=== PATIENT | male | born 1975 | race Caucasian/White ===

== ENCOUNTER 2019-08-02 15:53 | Emergency (ER) | payer OTHER ==
[~2019-08-02] VITALS: Ht 175.3 cm; Wt 123.4 kg
--- NOTE | 2019-08-02 16:00 | NUR ---
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
[2019-08-02] MEDS ORDERED: EPINEPHRINE (1:1000) 1 MG/ML AMPUL ONE (16:01)
[2019-08-02] MEDS ORDERED: IV NS 0.9% 1,000 ML IV ONE (16:01)
--- NOTE | 2019-08-02 16:02 | NUR ---
SEEN AND EXAMINED BY
[2019-08-02] MEDS ORDERED: DEXAMETHASONE SOD PHOSPHATE 10 MG/ML VIAL ONE (16:05)
[2019-08-02] MEDS ORDERED: diphenhydrAMINE HCL 50 MG/ML VIAL ONE (16:05)
[2019-08-02] MEDS ORDERED: FAMOTIDINE/PF INJ 20 MG/2 ML VIAL IV ONE ×2 (16:05→16:30)
--- NOTE | 2019-08-02 16:05 | NUR ---
PT IV LINE ESTABLISHED, BLOOD DRAWNED AND SENT TO LAB.
--- NOTE | 2019-08-02 16:07 | NUR ---
[employer] [facility] AT BEDSIDE FOR XRAY.
[2019-08-02 16:27] LABS: BASOPHILS # (AUTO) 0.1 /CMM (0.0-0.2); BASOPHILS % (AUTO) 0.9 % (0.0-2.0); EOSINOPHILS % (AUTO) 1.3 % (0.0-6.0); HEMATOCRIT 47 % (39-51); HEMOGLOBIN 16.2 g/dL (13.5-17.5); LYMPHOCYTES # (AUTO) 2.2 /CMM (0.8-4.8); LYMPHOCYTES % (AUTO) 24.1 % (20.0-44.0); MEAN CORPUSCULAR HGB CONC 35 g/dl (31.0-36.0); MEAN CORPUSCULAR VOLUME 94 fL (80-96); MONOCYTES % (AUTO) 10.5 % (2.0-12.0); NEUTROPHILS # (AUTO) 5.7 /CMM (1.8-8.9); NEUTROPHILS % (AUTO) 63.2 % (43.0-81.0); PLATELET COUNT (AUTO) 152 /CMM (150-450); RED BLOOD CELL COUNT(AUTO) 5.01 MIL/uL (4.5-6.0)
[2019-08-02] MEDS ORDERED: DEXAMETHASONE SOD PHOSPHATE 10 MG/ML VIAL IV ONE (16:30)
[2019-08-02] MEDS ORDERED: EPINEPHRINE (1:1000) MDV 30 MG/30ML VIAL SUBCUT ONE (16:30)
[2019-08-02] MEDS ORDERED: diphenhydrAMINE HCL 50 MG/ML VIAL IV ONE (16:30)
[2019-08-02] MEDS ORDERED: RACEPINEPHRINE HCL 2.25% NEB 0.5 ML VIAL.NEB IH ONE ×7 (16:30→19:35)
[2019-08-02 16:33] LABS: CALCIUM, SERUM 9.6 mg/dL (8.5-10.1); CARBON DIOXIDE 25 mmol/L (21-32); CHLORIDE 103 mmol/L (98-107); CREATININE 0.9 mg/dL (0.6-1.3); GLUCOSE 115 mg/dL (74-106); POTASSIUM 3.7 mmol/L (3.5-5.1); SODIUM SERUM 141 mmol/L (136-145); UREA NITROGEN, BLOOD 16 mg/dL (7-18)
[2019-08-02 16:38] LABS: ALANINE AMINOTRANSFERASE 53 U/L (12-78); ALBUMIN 4.2 g/dL (3.4-5.0); ALKALINE PHOSPHATASE 74 U/L (46-116); ASPARTATE AMINOTRANSFERASE 42 U/L (15-37); BILIRUBIN,DIRECT 0.1 mg/dL (0.0-0.2); BILIRUBIN,TOTAL 0.4 mg/dL (0.2-1.0); TOTAL PROTEIN, SERUM 8.4 g/dL (6.4-8.2)
--- NOTE | 2019-08-02 16:38 | NUR ---
DR ESTELLE GONCALVES PAGED THRU PING,OFFICE
--- NOTE | 2019-08-02 16:55 | NUR ---
ANESTHESIOLOGIST AT BEDSIDE FOR EVAL.
--- NOTE | 2019-08-02 17:00 | NUR ---
PT NEEDED TO BE TRANSFER FOR HIGHER LEVEL OF CARE DUE TO DIFFICULT AIRWAY PER ER MD AND ANESTHESIOLOGIST. CHARGE NURSE AND TUFTER AWARE.
--- NOTE | 2019-08-02 17:27 | NUR ---
[facility] CALLED,PRESENTED CASE TO ADITHYA CANADA,WILL HAVE VAISHALI RUIZ GIVE US A CALL BACK
[2019-08-02] MEDS ORDERED: CEFTRIAXONE 1 G in IV D5W 50 ML IV ONE ×2 (17:30→18:30)
--- NOTE | 2019-08-02 17:30 | NUR ---
CALLED [facility]. NO ENT SFDC ARCHITECT.
--- NOTE | 2019-08-02 17:36 | NUR ---
CALLED CAROLA LYNCH. DIRECTED TO GO THROUGH [facility]
--- NOTE | 2019-08-02 17:36 | NUR ---
[facility] STATED THAT THEY ARE AT FULL CAPACITY, PER PATRICA
[2019-08-02] MEDS ORDERED: CEFTRIAXONE 1GM BAG (ER ONLY) 0 ML IV ONE (17:37)
--- NOTE | 2019-08-02 17:47 | NUR ---
CALLED [facility] DR MANZANO AT [phone] AND LEFT A MESSAGE REQUESTING A CALL BACK. AWAITING HIS CALL.
--- NOTE | 2019-08-02 17:59 | NUR ---
CALLED [facility].
--- NOTE | 2019-08-02 18:03 | NUR ---
CALLED [facility].
[2019-08-02] MEDS ORDERED: CEFTRIAXONE 1GM BAG (ER ONLY) 50 ML IV ONE (18:19)
[2019-08-02] MEDS ORDERED: CLINDAMYCIN 900 MG in IV D5W 100 ML IV ONE (18:30)
--- NOTE | 2019-08-02 18:48 | NUR ---
SPOKE TO BELLO FROM [facility]. CONFIRMED RECEIVING FAX. INFORMED ME THAT SHE WILL FOLLOW UP, BUT BEDS ARE AT CAPACITY
--- NOTE | 2019-08-02 19:07 | NUR ---
RT AT BEDSIDE FOR BREATHING TREAMENT.
--- NOTE | 2019-08-02 19:11 | NUR ---
REPORT GIVEN TO DREAD RAG[place] FOR [facility]. AWAITING TRANSFER INFO TO [facility].
--- NOTE | 2019-08-02 19:13 | NUR ---
SITTING UPRIGHT IN BED RECEIVING BREATHING TX. REPORTED FEELING BETTER . NO ACUTE DISTRESS NOTED. FAMIL AT THE BED SIDE. WILL CONT TO MONITOR,
[2019-08-02 19:14] VITALS: BP 157/101
--- NOTE | 2019-08-02 19:26 | NUR ---
[facility] ED. DR CORY BRADLEY. GIVE REPORT TO [phone] ETA [phone]
--- NOTE | 2019-08-02 19:31 | NUR ---
ALS TEAM FROM [facility] ([place], [place]) AMBULANCE. DR CLINE AND FAMILY AT THE BED SIDE TO TRANSFER THE PT TO [facility].
--- NOTE | 2019-08-02 19:39 | NUR ---
REPORT GIVEN TO [facility] IN [facility].
== END 2019-08-02 19:49 | disposition short-term general hospital (02) ==
LOC: ER 15:53
DX: J05.10 Acute epiglottitis without obstruction (principal); E11.9 Type 2 diabetes mellitus without complications; J45.909 Unspecified asthma, uncomplicated
CPT/HCPCS: 36415; 70360; 71045; 80048; 80076; 84484; 85025; 94640 ×2; 96361; 96365; 96366; 96368; 96372; 96375; 99291; 99292; J0171 ×2; J0696 ×2; J1100; J1200; J3490 ×2; J7030; J7060 ×2

== ENCOUNTER 2023-08-04 20:54 | Inpatient (IN) | payer OTHER ==
[~2023-08-04] VITALS: Ht 177.8 cm; Wt 136.1 kg
[2023-08-04 21:37] LABS: BASOPHILS % (AUTO) 0.7 % (0.0-2.0); EOSINOPHILS # (AUTO) 0.1 K/uL (0.0-0.7); EOSINOPHILS % (AUTO) 1.7 % (0.0-6.0); HEMATOCRIT 30 % (39-51); HEMOGLOBIN 10.2 g/dL (13.5-17.5); LYMPHOCYTES # (AUTO) 0.7 K/uL (0.8-4.8); LYMPHOCYTES % (AUTO) 10.8 % (20.0-44.0); MEAN CORPUSCULAR HEMOGLOBIN 33 PG (26.0-33.0); MEAN CORPUSCULAR HGB CONC 34 g/dl (31.0-36.0); MEAN CORPUSCULAR VOLUME 97 fL (80-96); MONOCYTES # (AUTO) 0.7 K/uL (0.1-1.30); MONOCYTES % (AUTO) 10.7 % (2.0-12.0); NEUTROPHILS # (AUTO) 5.2 K/uL (1.8-8.9); NEUTROPHILS % (AUTO) 76.1 % (43.0-81.0); PLATELET COUNT (AUTO) 55 K/uL (150-450); RED BLOOD CELL COUNT(AUTO) 3.14 MIL/uL (4.5-6.0); RED CELL DISTRIBUTION WIDTH 15.2 % (11.5-15.0); WHITE BLOOD COUNT (AUTO) 6.8 K/uL (4.3-11.0)
[2023-08-04 21:49] LABS: APPEARANCE,URINE CLEAR (CLEAR); BILIRUBIN,URINE NEGATIVE (NEGATIVE); BLOOD, URINE TRACE-INTA Ery/uL (NEGATIVE); COLOR,URINE DARK YELLOW (YELLOW); KETONES,URINE TRACE mg/dL (NEGATIVE); LEUKOCYTE ESTERASE ,URINE NEGATIVE (NEGATIVE); NITRITE, URINE NEGATIVE (NEGATIVE); PH,URINE 5.5 (5.0-8.0); PROTEIN,URINE 1+ mg/dl (NEGATIVE); UGLUCOSE NEGATIVE (NEGATIVE); UROBILINOGEN,URINE 0.2 EU/dL (0.2)
[2023-08-04 21:55] LABS: ALANINE AMINOTRANSFERASE 34 U/L (12-78); ALBUMIN 2.5 g/dL (3.4-5.0); ALKALINE PHOSPHATASE 254 U/L (46-116); ASPARTATE AMINOTRANSFERASE 176 U/L (15-37); BILIRUBIN,DIRECT 0.7 mg/dL (0.0-0.2); CARBON DIOXIDE 26 mmol/L (21-32); CHLORIDE 96 mmol/L (98-107); CREATININE 2.3 mg/dL (0.6-1.3); GLUCOSE 87 mg/dL (74-106); POTASSIUM 3.8 mmol/L (3.5-5.1); SODIUM SERUM 132 mmol/L (136-145); TOTAL PROTEIN, SERUM 7.8 g/dL (6.4-8.2); UREA NITROGEN, BLOOD 28 mg/dL (7-18)
[2023-08-04 22:07] LABS: ADD URINE CULTURE NO; BACTERIA,URINE Few /HPF (None Seen); HYALINE CASTS, URINE Few /LPF (None Seen); RBC,URINE 0-2 /HPF (0-2); WBC,URINE 0-2 /HPF (0-3)
[2023-08-04 22:08] LABS: MUCUS,URINE Few /LPF (None Seen)
[2023-08-04 22:14] LABS: EOSINOPHILS % (MANUAL) 3 % (0-4); LYMPHOCYTES % (MANUAL) 6 % (16-48); MONOCYTES % (MANUAL) 8 % (0-11.0); NEUTROPHILS % (MANUAL) 83 (42-76); PLATELET ESTIMATE DECREASED
[2023-08-05 00:39] VITALS: BP 138/80; TEMP 99.1; O2SAT 94
[2023-08-05] MEDS ORDERED: Z GUARD REMEDY 4 OZ OINT TP PRN (02:30)
[2023-08-05] MEDS ORDERED: IV NS 0.9% 1,000 ML IV PRN (02:30)
[2023-08-05] MEDS ORDERED: MAGNESIUM HYDROXIDE 30 ML UDC PO PRN (02:30)
[2023-08-05] MEDS ORDERED: ACETAMINOPHEN 325 MG TABLET PO PRN (02:30)
[2023-08-05] MEDS ORDERED: ONDANSETRON HCL/PF 4 MG/2 ML VIAL IVP PRN (02:30)
[2023-08-05] MEDS ORDERED: DEXTROSE 50%-WATER 50 ML DISP.SYRIN IV PRN (05:30)
[2023-08-05] MEDS: IV D5/ 0.9% NACL 1,000 ML IV PRN (05:43)
[2023-08-05] MEDS: PANTOPRAZOLE 40 MG TABLET.DR PO SCH (06:37)
[2023-08-05] MEDS: BLOOD SUGAR DIAGNOSTIC 1 EACH STRIP IN SCH ×4 (06:41→21:55)
[2023-08-05] MEDS ORDERED: BLOO-668 IN (07:58)
[2023-08-05 08:00] VITALS: BP 106/78; TEMP 98.6; O2SAT 95
[2023-08-05] MEDS: DOCUSATE SODIUM 100 MG CAPSULE PO SCH ×3 (08:41→16:06)
[2023-08-05] MEDS ORDERED: HEPARIN SODIUM, PORCINE 5000 UNITS/1 ML VIAL SQ SCH (09:00)
[2023-08-05] MEDS: INSULIN REGULAR, HUMAN 100 UNIT/ML 3 ML VIAL SQ PRN ×2 (11:28→17:08)
[2023-08-05] MEDS ORDERED: LORAZEPAM INJ 2 MG/ML VIAL IV PRN (12:00)
[2023-08-05] MEDS: CHLORDIAZEPOXIDE HCL 25 MG CAPSULE PO SCH ×2 (12:13→16:05)
[2023-08-05 16:00] VITALS: BP 117/81; TEMP 97.4; O2SAT 99
[2023-08-05 16:34] LABS: FERRITIN 158 ng/mL (8-388)
[2023-08-05 17:27] LABS: CREATININE, URINE 184.5 MG/DL (30.0-125.0); URINE SODIUM, RANDOM < 5 mmol/l (40-220); URINE TOTAL PROTEIN 22.5 mg/dL (0-11.9)
[2023-08-05 18:03] LABS: OCCULT BLOOD STOOL NEGATIVE (NEGATIVE)
[2023-08-05 18:04] LABS: RHEUMATOID FACTOR SCREEN NEGATIVE (NEGATIVE)
[2023-08-05 20:00] VITALS: BP 115/74; TEMP 99.1; O2SAT 94
[2023-08-05 20:06] VITALS: BP 115/74; TEMP 94; O2SAT 94
[2023-08-06] MEDS ORDERED: LOPERAMIDE HCL UDC 2 MG/15 ML LIQUID PO PRN (06:00)
[2023-08-06] MEDS: BLOOD SUGAR DIAGNOSTIC 1 EACH STRIP IN SCH ×3 (06:45→17:15)
[2023-08-06 06:46] LABS: BASOPHILS # (AUTO) 0.1 K/uL (0.0-0.2); BASOPHILS % (AUTO) 0.8 % (0.0-2.0); EOSINOPHILS # (AUTO) 0.3 K/uL (0.0-0.7); EOSINOPHILS % (AUTO) 3.5 % (0.0-6.0); HEMATOCRIT 31 % (39-51); HEMOGLOBIN 10.1 g/dL (13.5-17.5); LYMPHOCYTES # (AUTO) 0.8 K/uL (0.8-4.8); LYMPHOCYTES % (AUTO) 9.9 % (20.0-44.0); MEAN CORPUSCULAR HEMOGLOBIN 33 PG (26.0-33.0); MEAN CORPUSCULAR HGB CONC 33 g/dl (31.0-36.0); MEAN CORPUSCULAR VOLUME 98 fL (80-96); MONOCYTES # (AUTO) 0.9 K/uL (0.1-1.30); MONOCYTES % (AUTO) 11.7 % (2.0-12.0); NEUTROPHILS # (AUTO) 5.9 K/uL (1.8-8.9); NEUTROPHILS % (AUTO) 74.1 % (43.0-81.0); PLATELET COUNT (AUTO) 76 K/uL (150-450); RED BLOOD CELL COUNT(AUTO) 3.12 MIL/uL (4.5-6.0); RED CELL DISTRIBUTION WIDTH 15.2 % (11.5-15.0)
[2023-08-06] MEDS ORDERED: LOPERAMIDE HCL (2 MG CAP) 2 MG CAPSULE PO PRN (07:00)
[2023-08-06 07:14] LABS: ALBUMIN 2.5 g/dL (3.4-5.0); BILIRUBIN,DIRECT 1.2 mg/dL (0.0-0.2); BILIRUBIN,TOTAL 2.1 mg/dL (0.2-1.0); CREATININE 2.3 mg/dL (0.6-1.3); MAGNESIUM 1.6 mg/dL (1.8-2.4); POTASSIUM 3.9 mmol/L (3.5-5.1); THYROID STIMULATING HORMONE 3.104 uIU/mL (0.358-3.74); TOTAL PROTEIN, SERUM 7.8 g/dL (6.4-8.2)
[2023-08-06] MEDS: PANTOPRAZOLE 40 MG TABLET.DR PO SCH (07:38)
[2023-08-06] MEDS ORDERED: MAGNESIUM OXIDE 400 MG TABLET PO ONE (08:30)
[2023-08-06] MEDS ORDERED: K PHOS NEUTRAL 250 MG TABLET PO ONE (08:30)
[2023-08-06 08:31] VITALS: BP 129/77; TEMP 99; O2SAT 91
[2023-08-06] MEDS: CHLORDIAZEPOXIDE HCL 25 MG CAPSULE PO SCH (08:55)
[2023-08-06] MEDS: DOCUSATE SODIUM 100 MG CAPSULE PO SCH ×2 (08:55→17:00)
[2023-08-06 09:08] LABS: FOLIC ACID 6.8 ng/mL (>3.0)
[2023-08-06 10:07] LABS: IMMUNOGLOBULIN A, SERUM 490 mg/dL (90-386); IMMUNOGLOBULIN G, SERUM 2294 mg/dL (603-1613)
[2023-08-06 11:06] LABS: *ANA ANTI-CENTROMERE B AB <0.2 AI (0.0-0.9); *ANA ANTI-DNA(DS) AB, QN 1 IU/mL (0-9); *ANA ANTI-JO-1 <0.2 AI (0.0-0.9); *ANA ANTICHROMATIN ANTIBODY <0.2 AI (0.0-0.9); *ANA RNP ANTIBODIES 0.2 AI (0.0-0.9); *ANA SJOGREN'S ANTI-SS-A <0.2 AI (0.0-0.9); *ANA SJOGREN'S ANTI-SS-B <0.2 AI (0.0-0.9); *ANAANTI-SCLERODERMA-70 AB <0.2 AI (0.0-0.9); *ANASMITH AB <0.2 AI (0.0-0.9)
[2023-08-06] MEDS: INSULIN REGULAR, HUMAN 100 UNIT/ML 3 ML VIAL SQ PRN ×2 (11:39→17:33)
[2023-08-06 13:35] LABS: ANISOCYTOSIS 1+; PLATELET ESTIMATE DECREASED
[2023-08-06] MEDS ORDERED: SOD FERRIC GLUC 125 MG in IV NS 0.9% 100 ML IV SCH (14:00)
[2023-08-06 14:07] LABS: *SPE A/G RATIO 0.6 (0.7-1.7); *SPE ALBUMIN 2.7 g/dL (2.9-4.4); *SPE ALPHA-1-GLOBULIN 0.4 g/dL (0.0-0.4); *SPE ALPHA-2-GLOBULIN 0.9 g/dL (0.4-1.0); *SPE BETA GLOBULIN 1.1 g/dL (0.7-1.3); *SPE GLOBULIN, TOTAL 4.7 g/dL (2.2-3.9); *SPE M-SPIKE Not Observed g/dL (Not Observed); *SPE PROTEIN TOTAL 7.4 g/dL (6.0-8.5); *SPEGAMMA GLOBULIN 2.3 g/dL (0.4-1.8)
[2023-08-06 15:06] LABS: FREE KAPPA LT CHAINS SERUM 155.6 mg/L (3.3-19.4); FREE LAMBDA LT CHAIN SERUM 156.6 mg/L (5.7-26.3); KAPPA/LAMBDA RATIO SERUM 0.99 (0.26-1.65)
[2023-08-06] MEDS: IV D5/ 0.9% NACL 1,000 ML IV PRN ×2 (15:25)
[2023-08-06 16:00] VITALS: BP 108/61; TEMP 99.2; O2SAT 97
[2023-08-06] MEDS ORDERED: CHLORDIAZEPOXIDE HCL 25 MG CAPSULE PO SCH (17:00)
[2023-08-07 03:07] LABS: HEPATITIS B SURFACE AB Reactive (.)
[2023-08-07 04:07] LABS: AFP, TUMOR MARKER <1.8 ng/mL (0.0-6.9); IMMUNOGLOBULIN M, SERUM 112 mg/dL (20-172)
[2023-08-10 14:07] LABS: CHROMOGRANIN A 216.6 ng/mL (0.0-101.8)
== END 2023-08-06 18:37 | disposition left against medical advice (07) | DRG 683 ==
LOC: ER 21:08 → MED 23:33
PROVIDERS: ADMIT Student in an Organized Health Care Education/Training Program; ATTEND Student in an Organized Health Care Education/Training Program
DX: N17.0 Acute kidney failure with tubular necrosis (principal); D61.818 Other pancytopenia; F10.139 Alcohol abuse with withdrawal, unspecified; E44.0 Moderate protein-calorie malnutrition; E87.1 Hypo-osmolality and hyponatremia; K76.6 Portal hypertension; Z68.41 Body mass index [BMI] 40.0-44.9, adult; K70.31 Alcoholic cirrhosis of liver with ascites; J45.909 Unspecified asthma, uncomplicated; E11.22 Type 2 diabetes mellitus with diabetic chronic kidney disease; N18.9 Chronic kidney disease, unspecified; Y90.9 Presence of alcohol in blood, level not specified; D53.9 Nutritional anemia, unspecified; E83.39 Other disorders of phosphorus metabolism; E83.42 Hypomagnesemia; E88.09 Other disorders of plasma-protein metabolism, not elsewhere classified; D69.6 Thrombocytopenia, unspecified; R53.1 Weakness; R74.01 Elevation of levels of liver transaminase levels
CPT/HCPCS: 36415; 71250-TC; 76770-TC; 80048-TC; 80061-TC; 80076-TC; 81001; 82105; 82272-TC; 82378; 82570-TC; 82607-TC; 82728-TC; 82784; 82962-TC; 83540-TC; 83735-TC; 84100-TC; 84155; 84165; 84300-TC; 84443-TC; 84484-TC; 85025-TC; 86225; 86235; 86301; 86316; 86334; 86431-TC; 86706; 86803; 87340; 97112-TC; 97116-TC; 97530-TC; A4223; G0378; J1815; J2060; J2916; J7030; J7042